=== PATIENT | male | born 1955 | race Caucasian/White ===

== ENCOUNTER 2016-09-11 20:41 | Emergency (ER) | payer OTHER ==
[~2016-09-11 20:41] MED LIST: CEPHALEXIN500 M1 PO; COLCRYS0.6 M1 PO; CYCLOBENZAPRINE10 M1 PO; ELIQUIS5 M1 PO; FLECAINIDE ACE100 M1 PO; FLEXERIL10 MG PO; FOLIC ACID PO; FOLIC ACID0.4 MG PO; FOLIC ACID0.8 M2 PO; HYDROCODON-ACE1 EAC7 PO; IBUPROFEN800 MG PO; LIPITOR20 MG PO; METAMUCIL1042 GM PO; METHOTREXATE2.5 MG PO; METOPROLOL SUCC50 M1 PO; NEURONTIN300 M1 PO; NORCO 5-325 TA1 EACH PO; NORCO 5/325 TAB1 TAB PO; OMEPRAZOLE40 MG PO; PERCOCET 5/3251 TAB PO; PREDNISONE1 MG PO; PREDNISONE10 M1 PO; PREDNISONE2.5 M1 PO; PROTONIX40 M2 PO; TREXALL10 MG PO; TYLENOL500 MG PO
[2016-09-11] MEDS ORDERED: CYCLOBENZAPRINE10 M1 PO (22:05)
[2016-09-11] MEDS ORDERED: ENDOCET 5-3251 EACH PO (22:05)
== END 2016-09-11 22:17 ==
LOC: EDMED 20:41
DX: M54.5 Low back pain (principal); G89.29 Other chronic pain; I48.91 Unspecified atrial fibrillation; I10 Essential (primary) hypertension; I73.9 Peripheral vascular disease, unspecified; M10.9 Gout, unspecified; Z87.891 Personal history of nicotine dependence; Z79.899 Other long term (current) drug therapy

== ENCOUNTER 2016-10-29 23:51 | Inpatient (IN) | payer OTHER ==
[~2016-10-29 23:51] MED LIST changes: +ENDOCET 5-3251 EACH PO
[2016-10-30] MEDS ORDERED: LYRICA50 MG/CAP PO (00:09)
[2016-10-30] MEDS ORDERED: IBUPROFEN200 M2 PO (00:10)
[2016-10-30] MEDS ORDERED: LIPITOR20 M1 PO (00:10)
[2016-10-30 00:15] LABS: BASO % 0.6 % (0-2); BASO ABSOLUTE COUNT 0.1 tho/cmm (0.0-0.2); EOS % 3.2 % (0-7); EOSINOPHIL ABSOLUTE COUNT 0.3 tho/cmm (0.0-0.7); HCT-HEMATOCRIT 39.8 % (36.0-53.5); HGB-HEMOGLOBIN 13.6 gm/dl (13.5-17.0); IMMATURE GRANULOCYTES ABSOLUTE 0.03 tho/cmm (0-0.03); IMMATURE GRANULOCYTES PERCENT 0.3 % (0-0.3); LYMPH % 28.5 % (20-45); LYMPH ABSOLUTE COUNT 2.5 tho/cmm (0.8-4.5); MCH (MEAN CORPUSCULAR HGB) 29.3 pg (28.0-32.0); MCHC MEAN CORPUSCULAR HGB CONC 34.2 % (32.0-36.0); MCV (MEAN CELL VOLUME) 85.8 fl (82.0-96.0); MEAN PLATELET VOLUME 10.2 cmc (9.4-12.4); MONO % 6.4 % (0-12); MONOCYTE ABSOLUTE COUNT 0.6 tho/cmm (0.0-1.2); NEUTROPHIL ABSOLUTE COUNT 5.4 tho/cmm (1.6-8.0); NEUTROPHIL-AUTOMATED 5.4 tho/cmm (1.6-8.0); PLATELET COUNT 200 tho/cmm (150-450); RED BLOOD COUNT 4.64 mil/cmm (4.40-5.70); RED CELL DISTRIBUTION WIDTH 13.2 % (12.4-16.4); WHITE BLOOD COUNT 8.8 tho/cmm (4.0-10.0)
[2016-10-30 00:29] LABS: ANION GAP 12 mmol/L (0-20); BLOOD UREA NITROGEN 14 mg/dl (6-24); CALCIUM 8.5 mg/dl (8.5-10.5); CARBON DIOXIDE-VENOUS 27 mmol/L (22-32); CHLORIDE 106 mmol/l (96-110); CREATININE 1.12 mg/dl (0.60-1.30); GLUCOSE 94 mg/dL (70-110); POTASSIUM 3.9 mmol/L (3.7-5.1); SODIUM 141 mmol/L (135-145); eGFR VALUE FOR BLACK 83 mL/Min
[2016-10-31 05:49] LABS: BLOOD UREA NITROGEN 9 mg/dl (6-24); CREATININE 0.99 mg/dl (0.60-1.30); eGFR VALUE FOR BLACK >90 mL/Min
[2016-10-31] MEDS ORDERED: PLAVIX75 M1 PO (09:26)
[2016-10-31] MEDS ORDERED: LIPITOR40 M1 PO (09:28)
[2016-10-31] MEDS ORDERED: ASPIRIN81 M1 PO (09:30)
== END 2016-10-31 10:15 | DRG 282 ==
LOC: EDMED 23:51 → EMR2 10-30 01:43 → CAR1 10-30 02:04
PROVIDERS: Emergency Medicine; Physician Assistant Medical; ADMIT Internal Medicine
PROC: 3E0F7GC Introduction of Other Therapeutic Substance into Respiratory Tract, Via Natural or Artificial Opening (ICD-10-PCS; principal; 2016-10-30)
PROC: B2111ZZ Fluoroscopy of Multiple Coronary Arteries using Low Osmolar Contrast (ICD-10-PCS; principal; 2016-10-30)
PROC: 4A023N7 Measurement of Cardiac Sampling and Pressure, Left Heart, Percutaneous Approach (ICD-10-PCS; principal; 2016-10-30)
PROC: B246ZZZ Ultrasonography of Right and Left Heart (ICD-10-PCS; 2016-10-30)
DX: I21.4 Non-ST elevation (NSTEMI) myocardial infarction (principal); I73.9 Peripheral vascular disease, unspecified; I10 Essential (primary) hypertension; I48.0 Paroxysmal atrial fibrillation; F32.9 Major depressive disorder, single episode, unspecified; E78.5 Hyperlipidemia, unspecified; R91.8 Other nonspecific abnormal finding of lung field; I25.10 Atherosclerotic heart disease of native coronary artery without angina pectoris; M06.9 Rheumatoid arthritis, unspecified; F41.9 Anxiety disorder, unspecified
CPT/HCPCS: C1769; C1887; C1894; J1644; J2250; J3010; Q9967